=== PATIENT | female | born 1995 | race Two or more races ===

== ENCOUNTER 2019-09-08 15:42 | Emergency (ER) | payer OTHER, SELFPAY ==
--- NOTE | ~2019-09-08 | XR_ITS ---
EXAMINATION: XR chest 1V portable DATE: 09/08/2019 16:54 INDICATION: Shortness of breath, cough and dizziness TECHNIQUE: frontal view of the chest was obtained. COMPARISON: None FINDINGS: The lungs are clear with no focal airspace opacities, pulmonary edema, pleural effusion or pneumothor ax. The cardiomediastinal silhouette is normal. Visualized bones and soft tissues are unremarkable. IMPRESSION: 1. Normal chest radiograph. Reviewed, dictated and finalized at location A. IMPRESSION: 1. Normal chest radiograph.
[2019-09-08 15:50] VITALS: BP 110/77; PULSE 50; RESP 20; TEMP 36.8; O2SAT 100
--- NOTE | 2019-09-08 15:53 | ECG_ITS ---
Measurements Intervals [place] Rate: 48 P: 70 UT: 135 QRS: 42 QRSD: 100 T: 15 QT: 441 QTc: 397 Interpretive Statements SINUS BRADYCARDIA INCOMPLETE RIGHT BUNDLE BRANCH BLOCK BASELINE WANDER- I, II ABNORMAL ECG Electronically Signed On 09-08-2019 16:05:26 CDT by Wu Werner D.O.
[2019-09-08 15:54] VITALS: PULSE 50; O2SAT 100
[2019-09-08 16:03] VITALS: BP 105/66; PULSE 52
[2019-09-08 16:03] LABS: Basophils Percent Auto 0.3 % (0.2-1.2); Eosinophils Percent Auto 0.4 % (0-4.4); Hematocrit 43.4 % (37.0-47.0); Hemoglobin 14.5 g/dL (12.0-15.0); Immature Granulocyte Absolute 0.02 K/mm3 (0.00-0.031); Immature Granulocyte Percent A 0.3 % (0-0.5); Lymphocytes Absolute Auto 2.15 K/mm3 (0.9-3.2); Lymphocytes Percent Auto 26.9 % (18.3-44.2); Mean Corpuscular HGB Conc 33.4 g/dl (32-36); Mean Corpuscular Hemoglobin 29.9 pg (26-34); Mean Corpuscular Volume 89.5 fl (80-100); Mean Platelet Volume 8.4 fl (7.4-10.4); Monocytes Absolute Auto 0.5 K/mm3 (0.1-0.6); Monocytes Percent Auto 6.3 % (2.6-8.5); Neutrophils Absolute Auto 5.3 K/mm3 (1.3-6.7); Neutrophils Percent Auto 65.8 % (45.5-73.1); Platelet Count Result 214 k/mm3 (150-375); Red Blood Count 4.85 M/mm3 (4.2-5.4); Red Cell Distribution Width 12.3 % (11.5-14.5)
[2019-09-08 16:04] VITALS: BP 102/57; PULSE 57
[2019-09-08 16:07] VITALS: BP 103/74; PULSE 70
[2019-09-08] MEDS: SODIUM CHLORIDE 0.9% IV 1,000 ML 999 ML IV CONT (16:09)
--- NOTE | 2019-09-08 16:13 | ED.GENADULT ---
HPI - General Adult General Chief complaint: Syncope Stated complaint: dizzy, sob Time Seen by Provider: 09/08/19 15:48 Source: patient Mode of arrival: ambulatory Limitations: no limitations History of Present Illness HPI narrative: Patient a 23-year-old female who presents to emergency department for evaluation of sore throat congestion rhinorrhea nonproductive cough for the last week patient notes today she was cooking began to feel near syncopal and had near syncope did not sustain any injury or trauma. Patient on arrival to emergency department in the room in no distress presents per private vehicle. Patient notes that she had felt fine prior day. Patient denies vomiting diarrhea or any pain at this time. Patient denies known sick contacts Related Data Allergies Allergy/AdvReac Type Severity Reaction Status Date / Time No Known Allergies Allergy Verified 09/08/19 16:08 Review of Systems Review of Systems: All systems reviewed & are unremarkable except as noted in HPI and below PMFSH Social History Social History (Updated 09/08/19 @ 16:15 by Darron Dickey PA-C) Smoking status: Never smoker Gender identity (if verbalized by the patient): Female Exam Narrative: Exam Narrative: GENERAL: Well-appearing, well-nourished, and in no acute distress. HEAD: Normocephalic, atraumatic. EYES: PERRLA and EOMI. ENT: Nares clear, no rhinorrhea or epistaxis. Mucous membranes moist. Oropharynx without tonsillar hypertrophy exudate or other lesions. Bilateral TMs pearly mcintosh nonbulging NECK: Supple. No adenopathy or masses. CHEST: Clear to auscultation. No respiratory distress. No wheezes rales or rhonchi HEART: Regular rate and rhythm. No murmur heard. Normal peripheral pulses. ABDOMEN: Soft, nontender, nondistended EXTREMITIES: Normal range of motion. No edema. SKIN: Warm, dry, no rash. NEURO: No focal deficits. Alert and oriented x3. Cranial nerves II through XII grossly intact PSYCH: Normal mood and affect. Course Course Emergency Course: Patient in the room at this time in no distress aware of case findings treatment plan and diagnosis agreeing to follow-up as directed or to return if symptoms worsen or concerns patient without high risk changes in the blood work or imaging was evaluated for COVID-19 will be advised to self quarantine until results have been given. Patient afebrile nontoxic-appearing without emesis felt appropriate for outpatient reevaluation provided with reasons to return. No pneumonia seen on exam patient's urine will be cultured. No high risk changes in the EKG patient felt to be low risk for PE Vital Signs Vital signs: Vital Signs Temperature 98.2 F 09/08/19 15:50 Pulse Rate 50 L 09/08/19 15:50 Respiratory Rate 20 09/08/19 15:50 Blood Pressure 110/77 09/08/19 15:50 Pulse Oximetry 100 09/08/19 15:50 Temperature 98.2 F 09/08/19 15:50 Pulse Rate 70 09/08/19 16:07 Respiratory Rate 20 09/08/19 15:50 Blood Pressure 103/74 09/08/19 16:07 Pulse Oximetry 100 09/08/19 15:54 Medical Decision Making MDM Narrative Medical decision making narrative: See course for medical decision making likely viral syndrome swab for COVID-19 will be referred to primary care given reasons to return. patient aware of case findings treatment plan and diagnosis Vital Signs Vital Signs: Vital Signs Temperature 98.2 F 09/08/19 15:50 Pulse Rate 50 L 09/08/19 15:50 Respiratory Rate 20 09/08/19 15:50 Blood Pressure 110/77 09/08/19 15:50 Pulse Oximetry 100 09/08/19 15:50 Temperature 98.2 F 09/08/19 15:50 Pulse Rate 70 09/08/19 16:07 Respiratory Rate 20 09/08/19 15:50 Blood Pressure 103/74 09/08/19 16:07 Pulse Oximetry 100 09/08/19 15:54 Lab Data Result diagrams: 09/08/19 15:57 09/08/19 15:57 Labs: Lab Results 09/08/19 09/08/19 09/08/19 Range/Units 15:57 15:57 16:08 WBC 8.0 (4.5-10.0) K/mm3 RBC 4.85
[2019-09-08 16:15] LABS: Blood Urea Nitrogen 10 mg/dL (7-17); Calcium 9.7 mg/dL (8.4-10.2); Carbon Dioxide 29 mmol/L (22-30); Chloride 102 mmol/L (98-107); Estimated CRCL calculation 118 ml/min; Estimated Glomerular Filt Rate > 60; Glucose 95 mg/dL (65-105); Potassium 3.8 mmol/L (3.4-5.0); Sodium 140 mmol/L (137-145)
[2019-09-08 16:23] LABS: Add Urine Microscopic? YES; Amorphous Sediment Urine Moderate; Appearance Urine Cloudy (Clear); Bacteria Urine Trace /hpf; Bilirubin Urine Negative (Negative); Blood Urine Negative (Negative); Color Urine Yellow (Yellow); Glucose Urine UA Negative (Negative); Ketones Urine Negative (Negative); Leukocyte Esterase Ur Trace LEU/UL (Negative); Mucus Urine Heavy /lpf; Nitrate Urine Negative (Negative); Protein Urine 3+ mg/dL (Negative); Specific Grav Ur 1.019 (1.001-1.035); Squamous Epithelial Cell Urine Many /hpf (Few); Urobilinogen Urine Negative mg/dL (<2.0)
[2019-09-08 18:10] VITALS: BP 91/53; PULSE 50; RESP 18; O2SAT 100
== END 2019-09-08 18:12 | disposition home or self-care (01) ==
PROVIDERS: Emergency Medicine Emergency Medical Services; Emergency Provider Emergency Medicine
DX: B34.9 Viral infection, unspecified (principal); R55 Syncope and collapse; Z20.828 Contact with and (suspected) exposure to other viral communicable diseases
CPT/HCPCS: 36415; 71045; 80048; 81001; 81025; 85025; 87086; 87088; 87880; 93005; 96361; 96365; 99284; J0131; J7030

== ENCOUNTER 2019-11-13 17:00 | Emergency (ER) | payer OTHER, SELFPAY ==
--- NOTE | 2019-11-13 17:07 | ED.GENADULT ---
HPI - General Adult General Chief complaint: Skin/Abscess/Foreign Body Stated complaint: pos insect bites Time Seen by Provider: 11/13/19 17:07 Source: patient Mode of arrival: ambulatory Limitations: no limitations History of Present Illness HPI narrative: 23-year-old female patient resents to the [facility] with complaints of a rash to bilateral lower extremities for the past 2 weeks. Patient states she has been getting multiple bug bites because she has been going for a lot of nature walks recently. Patient states that the bug bites will then go away and then she will notice bruising in areas where the bug bites were. Patient states that the itching has improved. Patient denies taking any antihistamines, ice or anti-itch cream. Patient denies any chest pain, shortness of breath. Patient states she has been using bug spray but denies wearing long pants at the time of her walks. Related Data Home Medications Medication Instructions Recorded Confirmed No Home Medications 11/13/19 11/13/19 Allergies Allergy/AdvReac Type Severity Reaction Status Date / Time No Known Allergies Allergy Verified 11/13/19 17:03 Review of Systems Review of Systems: Narrative: CONSTITUTIONAL: Denies fever, chills, or sweats. EYES: Denies visual changes, redness, or discharge. ENT: Denies rhinorrhea, congestion, sore throat, or otalgia. CARDIOVASCULAR: Denies chest pain, palpitations, or edema. RESPIRATORY: Denies cough or dyspnea. GASTROINTESTINAL: Denies abdominal pain, nausea, vomiting, or diarrhea. GENITOURINARY: Denies dysuria or hematuria. SKIN: Denies rash or itching. Positive rash and insect bites to bilateral lower legs x2 weeks MUSCULOSKELETAL: Denies back pain, joint pain, or myalgia. NEUROLOGIC: Denies headache, numbness, or weakness. PSYCHIATRIC: Denies anxiety or depression. PMFSH Social History Social History Smoking status: Never smoker Gender identity (if verbalized by the patient): Female Comments At the time of my signature I agree with nursing past medical history, surgical, social, and family history. There is no relevant family history pertinent to the presenting complaint. Exam Narrative: Exam Narrative: GENERAL: Well-appearing, well-nourished, and in no acute distress. HEAD: Normocephalic, atraumatic. EYES: PERRLA and EOMI. ENT: Nares clear, no rhinorrhea or epistaxis. Mucous membranes moist. NECK: Supple. No lymphadenopathy CHEST: Clear to auscultation. No respiratory distress. HEART: Regular rate and rhythm. No murmur heard. Normal peripheral pulses. ABDOMEN: Soft, nontender, nondistended, normal active bowel sounds. EXTREMITIES: Normal range of motion. No edema. SKIN: Warm, dry, patient has some red welts where there appears to be some punctate avery in the middle of these welts that appear to be some type of mosquito or bite avery. Patient has these throughout bilateral lower extremities. Patient also has some bruising noted to the lateral sides of bilateral legs. Denies any pain to the area. Denies any open wound or drainage. Denies any itching at this time. NEURO: No focal deficits. Alert and oriented x3. Course Vital Signs Vital signs: Vital Signs Temperature 36.8 C 11/13/19 17:08 Pulse Rate 62 11/13/19 17:08 Respiratory Rate 18 11/13/19 17:08 Blood Pressure 101/51 L 11/13/19 17:08 Pulse Oximetry 100 11/13/19 17:08 Temperature 36.8 C 11/13/19 17:08 Pulse Rate 62 11/13/19 17:08 Respiratory Rate 18 11/13/19 17:08 Blood Pressure 101/51 L 11/13/19 17:08 Pulse Oximetry 100 11/13/19 17:08 Vital signs reviewed. Medical Decision Making Differential Diagnosis Differential Diagnosis: Differential diagnosis: Abscess, cellulitis, hidradenitis, laceration, puncture wound. Discussed with patient this does look like a reaction most likely to the insect bites. Discussed with patient that when she does go out walki
[2019-11-13 17:08] VITALS: BP 101/51; PULSE 62; RESP 18; TEMP 36.8; O2SAT 100
== END 2019-11-13 17:34 | disposition home or self-care (01) ==
PROVIDERS: Emergency Provider Nurse Practitioner Family
DX: S80.862A Insect bite (nonvenomous), left lower leg, initial encounter (principal); S80.861A Insect bite (nonvenomous), right lower leg, initial encounter; W57.XXXA Bitten or stung by nonvenomous insect and other nonvenomous arthropods, initial encounter
CPT/HCPCS: 99211; G0463